=== PATIENT | female | born 1980 | race American Indian/Alaskan Native ===

== ENCOUNTER 2017-01-18 09:48 | Outpatient (CLI) | payer OTHER ==
[2017-01-18 10:48] LABS: Hemoglobin 12.9 gm/dl (10.1-14.3); Mean Corpuscular HGB Conc 32 % (30-34); Mean Corpuscular Hemoglobin 28 pg (28-32); Mean Corpuscular Volume 86 fl (79-97); Platelet Count 234 K/mm3 (140-440); Red Blood Count 4.67 M/mm3 (3.65-5.03); Red Cell Distribution Width 13.7 % (13.2-15.2); White Blood Count 5.5 K/mm3 (4.5-11.0)
[2017-01-18 10:49] LABS: Alanine Aminotransferase 17 units/L (7-56); Albumin 4.3 g/dL (3.9-5); Albumin/Globulin Ratio 0.9 %; Alkaline Phosphatase 76 units/L (35-129); Anion Gap 18 mmol/L; BUN/Creatinine Ratio 8.57; Blood Urea Nitrogen 6 mg/dL (7-17); Calcium 9.2 mg/dL (8.4-10.2); Carbon Dioxide 26 mmol/L (22-30); Chloride 99.6 mmol/L (98-107); Glucose 109 mg/dL (65-100); Potassium 3.7 mmol/L (3.6-5.0); Sodium 140 mmol/L (137-145); Total Protein 8.9 g/dL (6.3-8.2)
--- NOTE | 2017-01-18 12:59 | XRay Report ---
Chest 2 views: History: TB. Findings: Shift of the mediastinum to the left due to a extensive fibrosis and scarring left lung. This is mostly seen predominantly in the upper lobe. Compensatory emphysema right lung. No acute consolidation. Normal CP angles. Impression: Extensive fibrosis and scarring left lung with shift of mediastinum to the left.
== END 2017-01-18 09:49 | disposition home or self-care (01) ==
LOC: XRAY 09:48
PROVIDERS: ATTEND Internal Medicine
DX: J84.10 Pulmonary fibrosis, unspecified (principal); J43.9 Emphysema, unspecified; J98.4 Other disorders of lung; R93.8 Abnormal findings on diagnostic imaging of other specified body structures; J18.9 Pneumonia, unspecified organism; D64.9 Anemia, unspecified; F41.9 Anxiety disorder, unspecified; F32.9 Major depressive disorder, single episode, unspecified; Z86.11 Personal history of tuberculosis
CPT/HCPCS: 36415; 71020; 80053; 84436; 84443; 85027; 87070; 87205